=== PATIENT | female | born 1945 | race Caucasian/White ===

== ENCOUNTER → 2021-11-07 | Outpatient (CLI) | payer MEDICARE, OTHER ==
[~2021-11-07] MED LIST: BENA25TA5 PO; CITR500T PO; CYAN1000VL IM; D3 +TAB PO; DULO1CAP5 PO; LIDOCAINE 1% MDV 20ML VIAL As Ordered ONE; PANT40TA29 PO; PRAV10TA3 PO; PROC1CRE5 PR
[2021-11-07 08:57] LABS: BASO # 0.1 10^3/uL (0.0-0.2); BASO % 1.1 % (0.0-1.0); EOS # 0.2 10^3/uL (0.0-0.5); EOS % 3.5 % (0.0-3.0); HEMATOCRIT 38.3 % (36.0-47.0); HEMOGLOBIN 11.6 g/dl (12.0-15.5); LYMPH # 1.7 10^3/uL (1.5-5.0); LYMPH % 36.8 % (24.0-44.0); MEAN CORPUSCULAR HEMOGLOBIN 26.1 pg (27.0-33.0); MEAN CORPUSCULAR HGB CONC 30.3 g/dl (32.0-36.5); MEAN CORPUSCULAR VOLUME 86.3 fl (80.0-96.0); MONO # 0.5 10^3/uL (0.0-0.8); MONO % 10.6 % (2.0-8.0); NEUTROPHILS # 2.2 10^3/uL (1.5-8.5); NEUTROPHILS % 47.8 % (36.0-66.0); PLATELET COUNT, AUTOMATED 293 10^3/uL (150-450); RED BLOOD COUNT 4.44 10^6/uL (4.00-5.40); WHITE BLOOD COUNT 4.6 10^3/uL (4.0-10.0)
[2021-11-07 10:00] VITALS: BP 132/79
== END ==
LOC: M IRPRO 08:10
PROVIDERS: ATTEND Internal Medicine Hematology & Oncology
DX: D16.8 Benign neoplasm of pelvic bones, sacrum and coccyx (principal)

== ENCOUNTER → 2022-01-21 | Outpatient (CLI) | payer MEDICARE, OTHER ==
[~2022-01-21] MED LIST changes: -LIDOCAINE 1% MDV 20ML VIAL As Ordered ONE; +MIRA3350 PO; +SENN-85 PO
== END ==
LOC: M LABSMTC 10:55
PROVIDERS: ATTEND Anesthesiology
DX: Z01.812 Encounter for preprocedural laboratory examination (principal); Z20.822 Contact with and (suspected) exposure to COVID-19

== ENCOUNTER 2022-01-25 10:37 | Day surgery (SDC) | payer MEDICARE, OTHER ==
[~2022-01-25] VITALS: Ht 162.6 cm; Wt 73.8 kg
[~2022-01-25 10:37] MED LIST changes: +NS 1,000 ML IV ONE
[2022-01-25] MEDS ORDERED: LABETALOL 100MG/20ML VIAL As Ordered ONE (12:53)
[2022-01-25] MEDS ORDERED: propofoL 200 MG/20 ML VIAL As Ordered ONE (12:53)
[2022-01-25] MEDS ORDERED: fentaNYL 100 MCG/2 ML INJECTION As Ordered ONE (12:53)
[2022-01-25 13:37] VITALS: BP 118/74
== END 2022-01-25 13:40 | disposition home or self-care (01) ==
LOC: M OPP 10:37
PROVIDERS: ATTEND Internal Medicine Gastroenterology
DX: K21.00 Gastro-esophageal reflux disease with esophagitis, without bleeding (principal); Z98.0 Intestinal bypass and anastomosis status; R13.10 Dysphagia, unspecified; D64.9 Anemia, unspecified; Z79.899 Other long term (current) drug therapy; Z91.048 Other nonmedicinal substance allergy status; Z98.84 Bariatric surgery status; Z87.891 Personal history of nicotine dependence
CPT/HCPCS: 43239; 88305; J3010

== ENCOUNTER → 2023-04-01 | Day surgery (SDC) | payer MEDICARE, OTHER ==
[~2023-04-01] VITALS: Ht 160 cm; Wt 81.8 kg
[~2023-04-01] MED LIST changes: +CALC-263 PO; +FERR325T3 PO; +REFR0.5D8 OD; +VITA100093 PO
[2023-04-01 09:56] VITALS: BP 131/74; TEMP 97.2; O2SAT 98
== END | disposition home or self-care (01) ==
LOC: M OPP 06:35
PROVIDERS: ATTEND Internal Medicine Gastroenterology
DX: K31.A29 Gastric intestinal metaplasia with dysplasia, unspecified (principal); K22.89 Other specified disease of esophagus; K44.9 Diaphragmatic hernia without obstruction or gangrene; Z98.0 Intestinal bypass and anastomosis status; Z87.19 Personal history of other diseases of the digestive system; Z79.02 Long term (current) use of antithrombotics/antiplatelets; Z79.899 Other long term (current) drug therapy; Z91.048 Other nonmedicinal substance allergy status